=== PATIENT | male | born 1995 | race Two or more races ===

== ENCOUNTER 2019-09-06 13:16 | Emergency (ER) | payer SELFPAY ==
[~2019-09-06] VITALS: Ht 167.6 cm; Wt 51.3 kg
[2019-09-06] MEDS ORDERED: ACETAMINOPHEN ES 500 MG TABLET ONE (13:59)
[2019-09-06] MEDS ORDERED: IBUPROFEN 600 MG TABLET PO ONE ×2 (13:59→14:00)
[2019-09-06] MEDS ORDERED: ACETAMINOPHEN 325 MG TABLET PO ONE (14:00)
--- NOTE | 2019-09-06 14:09 | NUR ---
No acute changes from initial. For Discharge Patient discharged to home in stable condition. Written and verbal after care instructions given. Patient verbalizes understanding of instruction.
[2019-09-06 14:10] VITALS: BP 118/70
== END 2019-09-06 14:10 | disposition home or self-care (01) ==
LOC: ER 13:18
DX: R07.81 Pleurodynia (principal); R05 Cough; R07.89 Other chest pain

== ENCOUNTER 2019-09-16 19:37 | Emergency (ER) | payer SELFPAY ==
[~2019-09-16] VITALS: Ht 172.7 cm; Wt 56.7 kg
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
--- NOTE | 2019-09-16 21:13 | NUR ---
XRAY AT BEDSIDE
[2019-09-16] MEDS ORDERED: ACETAMINOPHEN ES 500 MG TABLET ONE (21:26)
[2019-09-16] MEDS ORDERED: ACETAMINOPHEN 325 MG TABLET PO ONE (21:30)
--- NOTE | 2019-09-16 21:30 | NUR ---
Note kendell in EDM - 09/16/19 at 2138 by EVICTOR PT AAOX4. AMBULATORY. PT C/O R HAND PAIN. NO ACUTE DISTRESS NOTED.
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
--- NOTE | 2019-09-16 22:06 | NUR ---
Patient discharged to home in stable condition. Written and verbal after care instructions given. Patient verbalizes understanding of instruction. PT ambulatory with a steady gait.
[2019-09-16 22:07] VITALS: BP 112/62
== END 2019-09-16 22:07 | disposition home or self-care (01) ==
LOC: ER 19:39
DX: M79.641 Pain in right hand (principal); F17.200 Nicotine dependence, unspecified, uncomplicated; W22.8XXA Striking against or struck by other objects, initial encounter; Y93.89 Activity, other specified; Y92.89 Other specified places as the place of occurrence of the external cause; Y99.8 Other external cause status
CPT/HCPCS: 73130-TC

== ENCOUNTER 2020-01-02 11:48 | Emergency (ER) | payer SELFPAY ==
[~2020-01-02] VITALS: Ht 167.6 cm; Wt 51.3 kg
[2020-01-02] MEDS ORDERED: IV NS 0.9% 1,000 ML BAG IV ONE (12:00)
[2020-01-02] MEDS ORDERED: ONDANSETRON HCL/PF 4 MG/2 ML VIAL IVP ONE (12:00)
[2020-01-02] MEDS ORDERED: MAG HYDROX/AL HYDROX/SIMETH 30 ML UDC PO ONE (12:00)
[2020-01-02] MEDS ORDERED: MAG HYDROX/AL HYDROX/SIMETH 30 ML UDC ONE (12:03)
[2020-01-02] MEDS ORDERED: ONDANSETRON HCL/PF 4 MG/2 ML VIAL ONE (12:03)
--- NOTE | 2020-01-02 12:05 | NUR ---
"cough/fever/chills/nausea/vomiting" SINCE YESTERDAY. REPORTS VOMIT X 2 TODAY. DENIES SOB. DENIES PAIN, DIZZINESS, WEAKNESS. NO ACUTE DISTRESS NOTED. RR EVEN AND UNLABORED ON RA. SEEN BY DR JOLLY. AWAITING ORDERS.
[2020-01-02 12:19] LABS: BASOPHILS % (AUTO) 0.2 % (0.0-2.0); EOSINOPHILS % (AUTO) 0.1 % (0.0-6.0); HEMATOCRIT 48 % (39-51); HEMOGLOBIN 15.9 g/dL (13.5-17.5); LYMPHOCYTES # (AUTO) 0.7 /CMM (0.8-4.8); LYMPHOCYTES % (AUTO) 4.1 % (20.0-44.0); MEAN CORPUSCULAR HGB CONC 33 g/dl (31.0-36.0); MEAN CORPUSCULAR VOLUME 96 fL (80-96); MONOCYTES # (AUTO) 0.6 /CMM (0.1-1.30); MONOCYTES % (AUTO) 3.4 % (2.0-12.0); NEUTROPHILS # (AUTO) 15.6 /CMM (1.8-8.9); NEUTROPHILS % (AUTO) 92.2 % (43.0-81.0); PLATELET COUNT (AUTO) 167 /CMM (150-450); RED BLOOD CELL COUNT(AUTO) 4.99 MIL/uL (4.5-6.0)
[2020-01-02 12:26] LABS: CALCIUM, SERUM 8.9 mg/dL (8.5-10.1); CREATININE 0.7 mg/dL (0.6-1.3); POTASSIUM 3.8 mmol/L (3.5-5.1)
[2020-01-02 12:32] LABS: ALBUMIN 4.3 g/dL (3.4-5.0); BILIRUBIN,DIRECT 0.2 mg/dL (0.0-0.2); BILIRUBIN,TOTAL 0.6 mg/dL (0.2-1.0); TOTAL PROTEIN, SERUM 8.1 g/dL (6.4-8.2)
--- NOTE | 2020-01-02 12:33 | NUR ---
PT COMPLAINING OF CONTINUED CHILLS. RETOOK ORAL TEMP. FEBRILE AT 100.7. MD AWARE
[2020-01-02] MEDS ORDERED: ACETAMINOPHEN 325 MG TABLET ONE (12:37)
[2020-01-02] MEDS ORDERED: predniSONE 50 MG TABLET PO ONE (13:00)
[2020-01-02] MEDS ORDERED: ACETAMINOPHEN 325 MG TABLET PO ONE (13:00)
[2020-01-02] MEDS ORDERED: predniSONE 10 MG TABLET ONE (13:11)
[2020-01-02] MEDS ORDERED: predniSONE 20 MG TABLET ONE (13:11)
[2020-01-02 13:24] VITALS: BP 130/68
--- NOTE | 2020-01-02 13:24 | NUR ---
IV removed. Catheter intact and site benign. Pressure and 4x4 applied to site. No bleeding noted.Patient discharged to home in stable condition. Written and verbal after care instructions given. Patient verbalizes understanding of instruction.
== END 2020-01-02 13:25 | disposition home or self-care (01) ==
LOC: ER 11:52
DX: J02.9 Acute pharyngitis, unspecified (principal); D72.829 Elevated white blood cell count, unspecified; R11.2 Nausea with vomiting, unspecified
CPT/HCPCS: 36415; 80048; 80076; 83690; 85025; 96361; 96374; 99284; J2405; J7030; J7512 ×2

== ENCOUNTER 2021-10-13 20:16 | Emergency (ER) | payer OTHER ==
[~2021-10-13] VITALS: Ht 170.2 cm; Wt 68.0 kg
--- NOTE | 2021-10-13 20:30 | NUR ---
PT BIBSELF C/O SOB X 3DAYS, WORSE WHEN LAYING DOWN. PT AAOX4 BREATHING EVENLY AND UNLABORED. PT ATTACHED TO MONITOR AND POX. PA AT BEDSIDE FOR EVAL. PT GIVEN BLANKET AND CALL LIGHT WITHIN REACH
--- NOTE | 2021-10-13 20:37 | NUR ---
called rt for breathing tx
[2021-10-13] MEDS ORDERED: predniSONE 20 MG TABLET ONE (20:46)
[2021-10-13] MEDS ORDERED: IPRATROPIUM NEB FS 0.5 MG/2.5 ML AMPUL.NEB ONE (20:48)
[2021-10-13] MEDS ORDERED: ALBUTEROL FS 2.5 MG/3 ML VIAL.NEB ONE (20:48)
--- NOTE | 2021-10-13 20:51 | NUR ---
rt at bedside
[2021-10-13] MEDS ORDERED: predniSONE 20 MG TABLET PO ONE (21:00)
[2021-10-13] MEDS ORDERED: IPRATROPIUM NEB FS 0.5 MG/2.5 ML AMPUL.NEB NEB ONE (21:00)
[2021-10-13] MEDS ORDERED: ALBUTEROL FS 2.5 MG/3 ML VIAL.NEB NEB ONE (21:00)
[2021-10-13] MEDS ORDERED: ALBU18HF2 INH (22:16)
[2021-10-13] MEDS ORDERED: PRED50TA PO (22:16)
--- NOTE | 2021-10-13 22:20 | NUR ---
Patient discharged to home in stable condition. Written and verbal after care instructions given. Patient verbalizes understanding of instruction. Pt ambulatory with a steady gait
[2021-10-13 22:23] VITALS: BP 129/77
== END 2021-10-13 22:20 | disposition home or self-care (01) ==
LOC: ER 20:23
DX: J98.01 Acute bronchospasm (principal); J45.909 Unspecified asthma, uncomplicated; Z79.899 Other long term (current) drug therapy
CPT/HCPCS: 94640; 99285; J7512

== ENCOUNTER 2024-01-27 20:44 | Emergency (ER) | payer OTHER ==
[~2024-01-27] VITALS: Ht 170.2 cm; Wt 65.8 kg
[~2024-01-27 20:44] MED LIST: ALBU18HF2 INH; PRED50TA PO
[2024-01-27] MEDS ORDERED: MOXI3DRO EACHEYE (21:29)
[2024-01-27 21:39] VITALS: BP 131/79; TEMP 98.3; O2SAT 98
== END 2024-01-27 21:39 | disposition home or self-care (01) ==
LOC: ER 20:47
DX: H10.9 Unspecified conjunctivitis (principal); F17.200 Nicotine dependence, unspecified, uncomplicated; Z79.899 Other long term (current) drug therapy